=== PATIENT | male | born 1975 | race Caucasian/White ===

== ENCOUNTER 2019-12-21 23:56 | Inpatient (IN) | payer OTHER ==
[~2019-12-21] VITALS: Ht 193 cm; Wt 183.8 kg
[2019-12-22 00:17] LABS: Hematocrit 48.4 % (37.0-53.0); Mean Corpuscular HGB 30.6 pg (26.0-34.0); Mean Corpuscular HGB Conc 33.1 g/dL (31.5-36.5); Mean Corpuscular Volume 93 fL (80-100); Mean Platelet Volume 11.6 fL (9.1-12.4); Platelet Count 221 K/mm3 (150-400); RDW Coefficient Variation 12.7 % (11.7-14.2); RDW Standard Deviation 43.5 fL (35.1-46.3); Red Blood Cell Count 5.23 M/mm3 (4.30-5.90); White Blood Cell Count 10.49 K/mm3 (4.00-11.30)
[2019-12-22 00:34] LABS: Alanine Aminotransfer (ALT/SGP 72 U/L (12-78); Albumin, Blood 3.6 g/dL (3.4-5.0); Albumin/Globulin Ratio 0.9 (0.8-1.8); Alk Phos 116 U/L (50-136); Anion Gap 7 mmol/L (6-16); Aspartate Aminotrans (AST/SGOT 43 U/L (12-37); Bilirubin, Total 0.3 mg/dL (0.1-1.0); Blood Urea Nitrogen 19 mg/dL (8-24); Bun/Creatinine Ratio 19.4 (12.0-20.0); CHOL/HDL RATIO 6.2; CO2, Blood 23 mmol/L (21-32); Calcium, Blood 8.6 mg/dL (8.5-10.1); Chloride, Blood 108 mmol/L (98-108); Cholesterol 187 mg/dL (50-200); Creatinine, Blood 0.98 mg/dL (0.60-1.20); Glomerular Filtration Rate >60 (60-); Glucose, Blood 210 mg/dL (70-99); HDL Cholesterol 30 mg/dL (>39); LDL/HDL RATIO 3.1; Low Density Lipoprotein Chol 92 mg/dL (0-110); Potassium, Blood 4.6 mmol/L (3.5-5.5); Sodium, Blood 138 mmol/L (136-145); Total Protein, Blood 7.6 g/dL (6.4-8.2); Triglycerides 323 mg/dL (30-160); Troponin I 0.434 ng/mL (0.000-0.040); Very Low Density Lipoprot Chol 64 mg/dL (6-32)
--- NOTE | 2019-12-22 04:31 | NUR ---
PT ARRIVES TO ICU FROM REFINING ENGINEER PT ALERT AND ORIENTED UPON ARRIVAL, TEARFUL. PT. REPORTS CHEST PAIN OF 1/10 UPON ARRIVAL DESCRIBING THE PAIN A "MILD PRESSURE" HOWEVER REPORTS THIS IS MUCH IMPROVED SINCE ARRIVAL. PT HYPERTENSIVE UPON ARRIVAL. PT. HAS BILAT TR BANDS IN PLACE, NO HEMATOMA NOTED, WITH SMALL AMOUNT OF OOZING TO RIGHT WRIST, PER REFINING ENGINEER STAFF UNCHANGED. PT. HAS 13CC OF AIR IN BOTH BANDS UPON ARRIVAL. PT LS CLEAR T/O AND IS ON RA. PT. HAS PITTING EDEMA TO BILAT LE PER PT HE WAS SUPPOSED TO SEE HIS PCP TODAY FOR WORK UP FOR LYMPHEDEMA. NS STARTED AT 100ML/HR. PT. VOIDED UPON ARRIVAL VIA URINAL. NADN. CALL LIGHT IN REACH. FAMILY AT BEDSIDE.
--- NOTE | 2019-12-22 05:10 | NUR ---
CALL TO DR. BENJMAIN UPDATED ON PT AND CONTINUED HYPERTENSION, AND IF REPEAT EKG NEEDED POST TELEVISION MAINTENANCE MAN. ORDERS OBTAINED FOR HYPERTENSION, AND EKG. HOSPITALIST CONSULT ORDERED WELL PER DR. BENJAMIN NOT URGENT BUT NEEDED FOR ASSISTANCE WITH PT BG MANAGEMENT.
[2019-12-22 08:37] LABS: BASOPHILS ABSOLUTE AUTO 0.07 K/mm3 (0.00-0.23); BASOPHILS PERCENT AUTO 1 % (0-2); EOSINOPHILS ABSOLUTE AUTO 0.07 K/mm3 (0.00-0.68); EOSINOPHILS PERCENT AUTO 1 % (0-6); Hematocrit 44.2 % (37.0-53.0); Hemoglobin 14.7 g/dL (13.5-17.5); IMMATURE GRAN ABSOLUTE AUTO 0.02 K/mm3 (0.00-0.10); IMMATURE GRAN PERCENT AUTO 0 % (0-1); LYMPHOCYTES ABSOLUTE AUTO 1.17 K/mm3 (0.84-5.20); LYMPHOCYTES PERCENT AUTO 13 % (21-46); MONOCYTES ABSOLUTE AUTO 0.52 K/mm3 (0.16-1.47); MONOCYTES PERCENT AUTO 6 % (4-13); Mean Corpuscular HGB 30.4 pg (26.0-34.0); Mean Corpuscular HGB Conc 33.3 g/dL (31.5-36.5); Mean Corpuscular Volume 92 fL (80-100); Mean Platelet Volume 11.5 fL (9.1-12.4); NEUTROPHILS ABSOLUTE AUTO 7.25 K/mm3 (1.96-9.15); NEUTROPHILS PERCENT AUTO 80 % (41-73); Platelet Count 211 K/mm3 (150-400); RDW Coefficient Variation 12.7 % (11.7-14.2); RDW Standard Deviation 42.4 fL (35.1-46.3); Red Blood Cell Count 4.83 M/mm3 (4.30-5.90)
[2019-12-22 09:00] LABS: Alanine Aminotransfer (ALT/SGP 78 U/L (12-78); Albumin, Blood 3.2 g/dL (3.4-5.0); Albumin/Globulin Ratio 0.8 (0.8-1.8); Alk Phos 91 U/L (50-136); Anion Gap 4 mmol/L (6-16); Aspartate Aminotrans (AST/SGOT 167 U/L (12-37); Bilirubin, Total 0.4 mg/dL (0.1-1.0); Blood Urea Nitrogen 14 mg/dL (8-24); Bun/Creatinine Ratio 18.5 (12.0-20.0); CHOL/HDL RATIO 6.2; CO2, Blood 26 mmol/L (21-32); Calcium, Blood 8.5 mg/dL (8.5-10.1); Chloride, Blood 105 mmol/L (98-108); Cholesterol 167 mg/dL (50-200); Creatinine, Blood 0.76 mg/dL (0.60-1.20); Globulin, Blood 4.1 g/dL (2.2-4.0); Glomerular Filtration Rate >60 (60-); Glucose, Blood 167 mg/dL (70-99); HDL Cholesterol 27 mg/dL (>39); LDL/HDL RATIO 2.8; Low Density Lipoprotein Chol 76 mg/dL (0-110); Potassium, Blood 4.7 mmol/L (3.5-5.5); Sodium, Blood 135 mmol/L (136-145); Total Protein, Blood 7.3 g/dL (6.4-8.2); Triglycerides 319 mg/dL (30-160); Very Low Density Lipoprot Chol 63 mg/dL (6-32)
--- NOTE | 2019-12-22 09:09 | NUR ---
ASSUMED CARE OF PT AT 0700. BEDSIDE REPORT FROM ADRIENNE JOHNSON. PT RESTING IN BED. A&OX 4. ANSWERS QUESTIONS APPROPRIATELY. PT ONLY C/O SLIGHT RICO THAT HE STATES IS IMPROVING. PT DENIES CHEST PAIN OR SOB. PT SPEAKING IN FULL SENTANCES. LUNGS CLEAR. NSR RATE 70-80'S. HTN NOTED. MEDICATED c PO MEDS AND LABETALOL IV PRN. ABD OBESE, SOFT, NON TENDER. BT X 4. ASSISTED PT c BREAKFAST, TOLERATED WELL. ENCOURAGED PO INTAKE. LYMPEDEMA TO LOWER EXTREMITIES. PT STATES THIS CHRONIC AND HAD APPT TO ESTABLISH PCP FOR WORKUP TODAY. TR BANDS TO BILATERAL RADIAL ARTERIES. EACH c 13ML OF AIR AT SHIFT CHANGE. CURRENTLY REMOVING 2-3 ML OF AIR q30. NO BLEEDING OR OOZING NOTED. PT DENIES PAIN TO SITES. RAULITO BLACKWELL CALLED FOR HOSPITALIST ADMISSION. WILL CONTINUE TO MONITOR.
--- NOTE | 2019-12-22 09:38 | NUR ---
Echocardiogram completed.
[2019-12-22 10:07] LABS: Source, Urine Clean Catch
[2019-12-22 10:21] LABS: Bilirubin, Urine Neg (Neg); Blood, Urine Neg (Neg); Glucose Qualitative, Urine 1+ (Neg); Ketones, Urine Neg (Neg); Leukocyte Esterase, Urine Neg (Neg); Nitrite, Urine Neg (Neg); Protein, Urine Neg (Neg); Urobilinogen, Urine NORM (Normal)
[2019-12-22 10:38] LABS: Appearance, Urine Clear (Clear); Color, Urine Yellow (P-Yellow)
--- NOTE | 2019-12-22 10:55 | NUR ---
DR BENJAMIN AND RAULITO CLEAN IN PLACES OPERATOR IN TO SEE PT THIS AM. ADDITIONAL BP MEDS ORDERED BY DR BENJAIMN. PLAN FOR DIETARY CONSULT, KNEE HIGH NIXON HOSE PLACED. TR BANDS REMOVED. OBSITE PLACED. NO BLEEDING, OOZING, HEMATOMA OR PAIN NOTED. ARM BOARDS IN PLACE.
--- NOTE | 2019-12-22 17:25 | NUR ---
SHIFT SUMMARY PT REMAINED CHEST PAIN FREE ENTIRE SHIFT. ONLY C/O RICO, RELIEVED c TYLENOL. TR BANDS REMOVED s COMPLICATIONS. OPSITES AND ARM BOARDS IN PLACE. HTN IMPROVED THIS SHIFT. REMAINED IN NSR. TROPONINS TRENDING DOWN. ECHO COMPLETE. ENCOURAGED PO INTAKE, 600 ML OF WATER THIS SHIFT. GOOD APPETITE. WILL CONTINUE TO MONITOR UNTIL REPORT TO ONCOMING NURSE.
--- NOTE | 2019-12-22 21:49 | NUR ---
BEDSIDE REPORT RECIEVED FROM JUSTEN OFF GOING RN. MONITOR INTACT SHOWING SINUS RHYTHM. HEART RATE 70'S-80'S. LUNG SOUNDS CLEAR WITH DECREASED SOUNDS IN THE BASES. RESPIRATIONS REGULAR AND EASY AT REST ABDOMEN SOFT WITH BOWEL SOUNDS FOUR QUADS. TR BAND SITES TO BOTH WRISTS CLEAR WITH DRESSING AND ARM BOARDS INTACT. CO HEARTBURN STATES TAKES "OMPROZOLE" AT HOME. NOTIFIED JAME CONSTRUCTION PROJECT MANAGER AND ORDERS NOTED. CONTINUE TO MONITOR AND REPORT CHANGE IN PATIENT CONDITION.
[2019-12-23 03:33] LABS: Mean Corpuscular HGB 30.5 pg (26.0-34.0); Mean Corpuscular HGB Conc 33.3 g/dL (31.5-36.5); Mean Corpuscular Volume 92 fL (80-100); Mean Platelet Volume 11.3 fL (9.1-12.4); Platelet Count 189 K/mm3 (150-400); RDW Coefficient Variation 12.8 % (11.7-14.2); RDW Standard Deviation 42.5 fL (35.1-46.3); Red Blood Cell Count 4.59 M/mm3 (4.30-5.90)
[2019-12-23 03:52] LABS: Alanine Aminotransfer (ALT/SGP 65 U/L (12-78); Albumin, Blood 3.2 g/dL (3.4-5.0); Albumin/Globulin Ratio 0.9 (0.8-1.8); Alk Phos 86 U/L (50-136); Anion Gap 7 mmol/L (6-16); Aspartate Aminotrans (AST/SGOT 110 U/L (12-37); Bilirubin, Total 0.8 mg/dL (0.1-1.0); Blood Urea Nitrogen 10 mg/dL (8-24); Bun/Creatinine Ratio 12.7 (12.0-20.0); CO2, Blood 25 mmol/L (21-32); Calcium, Blood 8.2 mg/dL (8.5-10.1); Chloride, Blood 105 mmol/L (98-108); Creatinine, Blood 0.79 mg/dL (0.60-1.20); Globulin, Blood 3.5 g/dL (2.2-4.0); Glomerular Filtration Rate >60 (60-); Glucose, Blood 153 mg/dL (70-99); Potassium, Blood 3.9 mmol/L (3.5-5.5); Sodium, Blood 137 mmol/L (136-145); Total Protein, Blood 6.7 g/dL (6.4-8.2)
[2019-12-23 05:55] LABS: BASOPHILS ABSOLUTE MAN 0.18 K/mm3 (0.00-0.23); BASOPHILS PERCENT MAN 2 % (0-2); EOSINOPHILS ABSOLUTE MAN 0.09 K/mm3 (0.00-0.68); EOSINOPHILS PERCENT MAN 1 % (0-6); LYMPHOCYTES ABSOLUTE MAN 1.36 K/mm3 (0.84-5.20); LYMPHOCYTES PERCENT MAN 15 % (21-46); MONOCYTES ABSOLUTE MAN 0.54 K/mm3 (0.16-1.47); MONOCYTES PERCENT MAN 6 % (4-13); NEUTROPHILS ABSOLUTE MAN 6.91 K/mm3 (1.96-9.15); SEG NEUTROPHILS PERCENT MAN 76 % (41-73); TOTAL CELLS COUNTED 100
--- NOTE | 2019-12-23 07:47 | NUR ---
ASSUMED CARE AT 0700 REPORT FROM ELIZABETH BERUMEN. PT A&O, RADIAL SITES STABLE. ASSISTED WITH PHONE USE. BILAT PITTING PEDAL EDEMA
--- NOTE | 2019-12-23 10:12 | NUR ---
MD VISIT DR. BENJAMIN IN. PT CHANGED TO PCU STATUS. APPOINTMENT MADE WITH OFFICE FOR 01/01/20. BRILINTA SAMPLES PICKED UP BY MOTHER.
--- NOTE | 2019-12-23 16:06 | NUR ---
PATIENT DENIES CHEST PAIN.
--- NOTE | 2019-12-23 19:24 | NUR ---
REPORT GIVEN TO ELIZABETH CASTRO
--- NOTE | 2019-12-23 20:00 | NUR ---
ASSUMPTION OF CARE: PT A&0. FAMILY CURRENTLY IN ROOM. IN SR. SBP 130-160S. HR IN THE 80S. PT DOES HAVE BLE EDEMA RELATED TO LYMPHEDEMA. PULSES ARE PRESENT. PITTING IS 2+. BILAT RADIAL ACCESS SITES ARE DRY AND INTACT. NO CURRENTLY BLEEDING OR HEMATOMA. PULSES ARE PALAPABLE. GOOD MOVEMENT AND SENSATION IN FINGERS. SPO2 >90% ON RA. SOME EXPIRATORY WHEEZES PRESENT. PT HAS BILAT AC IV THAT ARE PATENT AND SL. PT IS UP IN ROOM ON OWN. BED LOW AND CALL LIGHT IN REACH. WILL CONTINUE TO MONITOR
[2019-12-24 03:45] LABS: Anion Gap 5 mmol/L (6-16); Blood Urea Nitrogen 12 mg/dL (8-24); Bun/Creatinine Ratio 14.5 (12.0-20.0); CO2, Blood 27 mmol/L (21-32); Calcium, Blood 8.6 mg/dL (8.5-10.1); Chloride, Blood 106 mmol/L (98-108); Creatinine, Blood 0.83 mg/dL (0.60-1.20); Glomerular Filtration Rate >60 (60-); Glucose, Blood 139 mg/dL (70-99); Sodium, Blood 138 mmol/L (136-145)
--- NOTE | 2019-12-24 03:46 | NUR ---
PT CONTINUES TO REST COMFORTABLY T/O SHIFT. NO COMPLAINTS THUS FAR. PT UP TO TOILET ON OWN. VSS
--- NOTE | 2019-12-24 05:13 | NUR ---
SHIFT SUMMARY: NO ACUTE CHANGES T/O SHIFT. VITALS REMAIN STABLE. RADIAL ACCESS SITES ARE DRY AND INTACT. PT HAS HAD NO COMPLAINTS
--- NOTE | 2019-12-24 09:49 | NUR ---
PT HAS BEEN A[facility] AND [facility]. VSS. NO DISTRESS.
[2019-12-24] MEDS ORDERED: ASPI81CH PO (15:30)
[2019-12-24] MEDS ORDERED: AMLO10 PO (15:30)
[2019-12-24] MEDS ORDERED: ATOR80 PO (15:31)
[2019-12-24] MEDS ORDERED: HYDRA25 PO (15:32)
[2019-12-24] MEDS ORDERED: APRACLONIDINE (15:32)
[2019-12-24] MEDS ORDERED: Humalog100 UNIT/3 SC (15:45)
[2019-12-24] MEDS ORDERED: Prinivil10 MG PO (15:47)
[2019-12-24] MEDS ORDERED: METO50ER PO (15:48)
[2019-12-24] MEDS ORDERED: NICO21TP TOP (15:48)
[2019-12-24] MEDS ORDERED: OMEP20ER PO (15:51)
[2019-12-24] MEDS ORDERED: TICA90TA PO (15:52)
[2019-12-24] MEDS ORDERED: NITR.4SL SL (15:56)
--- NOTE | 2019-12-24 16:49 | NUR ---
PT WAS D/C VIA W/C PT FAMILY CAR. PT STEADY ON FEET. IV REMOVED INTACT. INSTRUCTIONS RE BILAT TR SITES GIVEN AND RECIEVED. INSULIN LSS PRINTED OUT AND GIVEN TO PT WITH PT UNDERSTANDING MEDICATION. MEDICATION DISCOUNT CARD GIVEN TO PT FROM [facility]. FAMILY IN ATTENDANCE WITH INSTRUCTIONS AND ALSO VERBALIZED UNDERSTANDING. PT HAS F/U APPOINTMENT ON December AT 10 A.M. PT HAD BEEN UP IN ROOM AND WAS NOT EXPERIENCING ANY CHEST PAIN OR DISTRESS. PT WILL GO TO [facility] AND MEDS FAXED AHEAD FOR CLARRIFICATION.
== END 2019-12-24 16:45 | disposition home or self-care (01) | DRG 247 ==
LOC: ER 23:56 → ICUE 23:57 → ER 23:57 → ICUW 23:57 → ICUE 12-22 01:04 → ICUW 12-22 01:04 → ICUE 12-22 04:25
PROVIDERS: Emergency Medicine; Internal Medicine; Nurse Practitioner Acute Care; ADMIT Internal Medicine Interventional Cardiology
PROC: 4A023N7 Measurement of Cardiac Sampling and Pressure, Left Heart, Percutaneous Approach (ICD-10-PCS; principal; 2019-12-22)
PROC: 027034Z Dilation of Coronary Artery, One Artery with Drug-eluting Intraluminal Device, Percutaneous Approach (ICD-10-PCS; 2019-12-22)
PROC: B2111ZZ Fluoroscopy of Multiple Coronary Arteries using Low Osmolar Contrast (ICD-10-PCS; 2019-12-22)
PROC: 4A033BC Measurement of Arterial Pressure, Coronary, Percutaneous Approach (ICD-10-PCS; 2019-12-22)
DX: I21.11 ST elevation (STEMI) myocardial infarction involving right coronary artery (principal); Z68.42 Body mass index [BMI] 45.0-49.9, adult; I16.1 Hypertensive emergency; F17.210 Nicotine dependence, cigarettes, uncomplicated; E66.01 Morbid (severe) obesity due to excess calories; K21.9 Gastro-esophageal reflux disease without esophagitis; G47.33 Obstructive sleep apnea (adult) (pediatric); I25.10 Atherosclerotic heart disease of native coronary artery without angina pectoris; E11.9 Type 2 diabetes mellitus without complications; E78.5 Hyperlipidemia, unspecified; Z79.4 Long term (current) use of insulin; I10 Essential (primary) hypertension
CPT/HCPCS: 36415; 71045; 76937; 80048; 80053; 80061; 81003; 82947; 83036; 83735; 84484; 85007; 85025; 85027; 85347; 86850; 86900; 86901; 93005; 93010; 93306; 93458; 93571; 94660; 96374; 99152; 99153; 99285-25; A9270; A9270-GY; C1725; C1769; C1874; C1887; C1894; C9600; C9606; J1644; J1650; J2250; J3010; J7030; J7040; Q9967

== ENCOUNTER 2020-01-02 09:51 | Inpatient (IN) | payer OTHER ==
[~2020-01-02] VITALS: Ht 193 cm; Wt 184.2 kg
[~2020-01-02 09:51] MED LIST: AMLO10 PO; APRACLONIDINE; ASPI81CH PO; ATOR80 PO; HYDRA25 PO; Humalog100 UNIT/3 SC; METO50ER PO; NICO21TP TOP; NITR.4SL SL; OMEP20ER PO; Prinivil10 MG PO; TICA90TA PO
--- NOTE | 2020-01-02 13:25 | NUR ---
AM NOTE... ASSUMED CARE OF PT APROX 1315. PT IS S/P ANGIO WITH STENT PLACEMENT. PT HAS TR BAND TO THE RIGHT WRIST. VS STABLE. PT DENIES CHEST PAIN/PRESSURE AT THIS TIME. NO SWELLING, BLEEDING OR HEMATOMA NOTED TO THE PT'S RIGHT WRIST. CALL LIGHT IN REACH WILL CONTINUE TO MONITOR.
--- NOTE | 2020-01-02 14:03 | NUR ---
The pt is sitting in bed, leaning back with HOB elevated a45 degrees. He denies chest discomfort, dyspnea and shortness of breath. STates a little bit of a headache which he states is from the nitroglycerin. TR band and white immoblizer board are in place, right wrist, and without signs of bleeding, bruising, swelling nor hematoma. Pt denies numbness/pain/tingling in the right hand/wrist. He appears to be in no distress.
--- NOTE | 2020-01-02 14:05 | NUR ---
Per dance choreographer tech, heart rhythm is sinus rhythm at 92 bpm.
--- NOTE | 2020-01-02 18:17 | NUR ---
SHIFT SUMMARY... NO ACUTE NEGATIVE CHANGES NOTED THIS SHIFT. TR BAND HAS BEEN DEFLATED, NO BLEEDING SWELLING OR HEMATOMA NOTED. PT'S VS STABLE AT THIS TIME. PT IS A&Ox4 AND IND IN THE ROOM. PT WILL MOST LIKELY D/C HOME TOMORROW. CALL LIGHT IN REACH WILL CONTINUE TO MONITOR UNTIL REPORT IS GIVEN TO ONCOMING RN.
--- NOTE | 2020-01-02 19:45 | NUR ---
ASSUMED CARE RECEIVED REPORT FROM ELIZABETH SARGNET. ASSUMED CARE OF PT. RESTING COMFORTABLY AT THIS TIME IN NO ACUTE DISTRESS. RT RADIAL TR SITE WNL, NO HEMATOMA, OOZING NOTED. PULSES STRONG. DENIES NUMBNESS OR TINGLING. DENIES ANY OTHER NEEDS AT THIS TIME. CALL LIGHT AND POSSESSIONS IN REACH, WILL CONTINUE TO MONITOR.
--- NOTE | 2020-01-03 00:49 | NUR ---
SPOKE TO DR. PEREZ REGARDING PT'S INCREASING TEMPERATURES. ORDERS RECEIVED.
[2020-01-03 01:20] LABS: BASOPHILS ABSOLUTE AUTO 0.04 K/mm3 (0.00-0.23); BASOPHILS PERCENT AUTO 0 % (0-2); EOSINOPHILS ABSOLUTE AUTO 0.13 K/mm3 (0.00-0.68); EOSINOPHILS PERCENT AUTO 1 % (0-6); Hematocrit 40.9 % (37.0-53.0); Hemoglobin 13.6 g/dL (13.5-17.5); IMMATURE GRAN ABSOLUTE AUTO 0.03 K/mm3 (0.00-0.10); IMMATURE GRAN PERCENT AUTO 0 % (0-1); LYMPHOCYTES ABSOLUTE AUTO 0.17 K/mm3 (0.84-5.20); LYMPHOCYTES PERCENT AUTO 2 % (21-46); MONOCYTES ABSOLUTE AUTO 0.55 K/mm3 (0.16-1.47); MONOCYTES PERCENT AUTO 5 % (4-13); Mean Corpuscular HGB 30.1 pg (26.0-34.0); Mean Corpuscular HGB Conc 33.3 g/dL (31.5-36.5); Mean Corpuscular Volume 91 fL (80-100); Mean Platelet Volume 11.1 fL (9.1-12.4); NEUTROPHILS ABSOLUTE AUTO 9.42 K/mm3 (1.96-9.15); NEUTROPHILS PERCENT AUTO 91 % (41-73); Platelet Count 259 K/mm3 (150-400); RDW Coefficient Variation 12.6 % (11.7-14.2); RDW Standard Deviation 41.5 fL (35.1-46.3); Red Blood Cell Count 4.52 M/mm3 (4.30-5.90); White Blood Cell Count 10.34 K/mm3 (4.00-11.30)
[2020-01-03 01:35] LABS: Anion Gap 5 mmol/L (6-16); Blood Urea Nitrogen 18 mg/dL (8-24); Bun/Creatinine Ratio 14.2 (12.0-20.0); CO2, Blood 26 mmol/L (21-32); Calcium, Blood 8.4 mg/dL (8.5-10.1); Chloride, Blood 105 mmol/L (98-108); Creatinine, Blood 1.27 mg/dL (0.60-1.20); Glomerular Filtration Rate >60 (60-); Glucose, Blood 129 mg/dL (70-99); Potassium, Blood 4.6 mmol/L (3.5-5.5); Sodium, Blood 136 mmol/L (136-145)
--- NOTE | 2020-01-03 03:24 | NUR ---
SPOKE TO DR. PEREZ REGARDING PENDING LABS TO BE DRAWN. ORDERS RECEIVED.
--- NOTE | 2020-01-03 05:55 | NUR ---
SHIFT SUMMARY: PT RESTING COMFORTABLY AT THIS TIME, NO S/S ACUTE DISTRESS NOTED. WAS MONITORED EVERY 1-2 HOURS WITH NEEDS MET. RT RADIAL TR SITE REMAINS WNL, NO HEMATOMA, BLEEDING OR OOZING NOTED. PULSE STRONG, DENIES NUMBNESS AND TINGLING. TEMPS STABLE. SLEPT ON AND OFF T/O NIGHT.
[2020-01-03 06:24] LABS: Adenovirus Not Detected (NOT DETECT); Bordetella pertussis Not Detected (NOT DETECT); Chlamydophila pneumoniae Not Detected (NOT DETECT); Coronavirus 229E Not Detected (NOT DETECT); Coronavirus HKU1 Not Detected (NOT DETECT); Coronavirus NL63 Not Detected (NOT DETECT); Coronavirus OC43 Not Detected (NOT DETECT); Human Metapneumovirus Not Detected (NOT DETECT); Human Rhinovirus/Enterovirus Not Detected (NOT DETECT); Influenza A/2009-H1 Not Detected (NOT DETECT); Influenza A/H1 Not Detected (NOT DETECT); Influenza A/H3 Not Detected (NOT DETECT); Influenza B Not Detected (NOT DETECT); Mycoplasma pneumoniae Not Detected (NOT DETECT); Parainfluenza Virus 1 Not Detected (NOT DETECT); Parainfluenza Virus 2 Not Detected (NOT DETECT); Parainfluenza Virus 3 Not Detected (NOT DETECT); Parainfluenza Virus 4 Not Detected (NOT DETECT); Respiratory Syncytial Virus Not Detected (NOT DETECT)
[2020-01-03 07:30] LABS: Source, Urine Clean Catch
[2020-01-03 07:44] LABS: BASOPHILS ABSOLUTE AUTO 0.05 K/mm3 (0.00-0.23); BASOPHILS PERCENT AUTO 1 % (0-2); EOSINOPHILS ABSOLUTE AUTO 0.34 K/mm3 (0.00-0.68); EOSINOPHILS PERCENT AUTO 4 % (0-6); Hematocrit 39.3 % (37.0-53.0); IMMATURE GRAN ABSOLUTE AUTO 0.03 K/mm3 (0.00-0.10); IMMATURE GRAN PERCENT AUTO 0 % (0-1); LYMPHOCYTES ABSOLUTE AUTO 0.27 K/mm3 (0.84-5.20); LYMPHOCYTES PERCENT AUTO 3 % (21-46); MONOCYTES ABSOLUTE AUTO 0.76 K/mm3 (0.16-1.47); MONOCYTES PERCENT AUTO 9 % (4-13); Mean Corpuscular HGB 30.2 pg (26.0-34.0); Mean Corpuscular HGB Conc 33.1 g/dL (31.5-36.5); Mean Corpuscular Volume 91 fL (80-100); Mean Platelet Volume 10.9 fL (9.1-12.4); NEUTROPHILS ABSOLUTE AUTO 6.93 K/mm3 (1.96-9.15); NEUTROPHILS PERCENT AUTO 83 % (41-73); Platelet Count 223 K/mm3 (150-400); RDW Coefficient Variation 12.8 % (11.7-14.2); RDW Standard Deviation 42.9 fL (35.1-46.3); Red Blood Cell Count 4.31 M/mm3 (4.30-5.90); White Blood Cell Count 8.38 K/mm3 (4.00-11.30)
[2020-01-03 07:47] LABS: Bilirubin, Urine Neg (Neg); Blood, Urine 1+ (Neg); Glucose Qualitative, Urine Neg (Neg); Ketones, Urine 1+ (Neg); Leukocyte Esterase, Urine 2+ (Neg); Nitrite, Urine Neg (Neg); Protein, Urine 2+ (Neg); Specific Gravity, Urine 1.015 (1.003-1.022); Urobilinogen, Urine 1+ (Normal)
[2020-01-03 07:54] LABS: Appearance, Urine Cloudy (Clear); Color, Urine Yellow (P-Yellow)
[2020-01-03 07:55] LABS: Amorphous Heavy (0-Heavy); Bacteria Mod /hpf; Red Blood Cells, Urine 0-2 /hpf (0-2); Squamous Epithelial Cells Few /hpf (Few)
--- NOTE | 2020-01-03 08:39 | NUR ---
AM NOTE... ASSUMED CARE OF PT APROX 0700. PT IS A&Ox4 AND IND IN THE ROOM. PT SPIKED TEMP DURING NOC SHIFT, UA WAS SENT (SEE LAB RESULTS.) PT IS GETTING FLUID BOLUS. PT'S VS STABLE AT THIS TIME, PT DENIES ANY CHEST PAIN/PRESSURE N/V OR SOB AT THIS TIME. RIGHT WRIST SITE IS C/D/I. L/S CLEAR T/O, BT PRESENT AND HYPERACTIVE, ABD SOFT AND NONTENDER TO PALP. PT IS ON RA WITH O2 SATS >90%. CALL LIGHT IN REACH WILL CONTINUE TO MONITOR
--- NOTE | 2020-01-03 18:29 | NUR ---
SHIFT SUMMARY... PT HAS BEEN AFEBRILE T/O SHIFT AND VS HAVE BEEN STABLE. PT HAD 3.2 SECOND PAUSE NOTED ON TELE, STRIP IN THE CHART. PT WAS SLEEPING DURING THIS EVENT. PT HAS SLEEP APNEA AND WAS HAVING AN APNIC PERIOD DURING THIS PAUSE THAT WAS WITNESSED BY THIS RN. PT HAS BEEN IND IN THE ROOM. RIGHT WRIST SITE IS STABLE, NO BLEEDING, SWELLING OR HEMATOMA NOTED. CALL LIGHT IN REACH WILL CONTINUE TO MONITOR UNTIL REPORT IS GIVEN TO ONCOMING RN.
--- NOTE | 2020-01-03 20:15 | NUR ---
ASSUMED CARE RECEIVED REPORT FROM ELIZABETH SARGENT. ASSUMED CARE OF PT. IN NO ACUTE DISTRESS AT THIS TIME, DENIES CP OR SOB. VS STABLE. PT RESTING COMFORTABLY WATCHING TV AT THIS TIME. IVF COMPLETED ORDERED, SALINE LOCKED. DENIES ANY OTHER NEEDS AT THIS TIME. CALL LIGHT AND POSSESSIONS IN REACH, WILL CONTINUE TO MONITOR.
[2020-01-04 05:57] LABS: Anion Gap 6 mmol/L (6-16); Blood Urea Nitrogen 13 mg/dL (8-24); Bun/Creatinine Ratio 14.9 (12.0-20.0); CO2, Blood 25 mmol/L (21-32); Calcium, Blood 8.4 mg/dL (8.5-10.1); Chloride, Blood 107 mmol/L (98-108); Creatinine, Blood 0.87 mg/dL (0.60-1.20); Glomerular Filtration Rate >60 (60-); Glucose, Blood 126 mg/dL (70-99); Potassium, Blood 4.2 mmol/L (3.5-5.5); Sodium, Blood 138 mmol/L (136-145)
--- NOTE | 2020-01-04 07:55 | NUR ---
SHIFT SUMMARY: PT RESTING IN BED, IN NO ACUTE DISTRESS. NO ACUTE EVENTS NOTED T/O NIGHT, O2 SATS STABLE ON 2L O2/NC WHILE SLEEPING, NO FURTHER PAUSES IN HR NOTED, SATS STABLE. DENIES ANY NEEDS AT THIS TIME, CALL LIGHT AND POSSESSIONS IN REACH, REPORT GIVEN TO ONCOMING RN.
[2020-01-04] MEDS ORDERED: LEVO750 PO (10:34)
--- NOTE | 2020-01-04 10:57 | NUR ---
DISCHARGE HOME PT DISCHARGED HOME VIA W/C. IV LEFT FA REMOVED WITH CANNULA INTACT. PRESSURE DRESSING APPLIED. VSS. RIGHT RADIAL SITE C&I. WRIST BOARD OFF. FAMILY AT BEDSIDE. CONTINUE POT.
== END 2020-01-04 10:55 | disposition home or self-care (01) | DRG 246 ==
LOC: PCU 09:51 → MHTC 09:51 → PCU 13:57 → MHTC 01-03 07:55 → PCU 01-03 07:56
PROVIDERS: Internal Medicine; ADMIT Internal Medicine Interventional Cardiology
PROC: 027034Z Dilation of Coronary Artery, One Artery with Drug-eluting Intraluminal Device, Percutaneous Approach (ICD-10-PCS; principal; 2020-01-02)
DX: I25.110 Atherosclerotic heart disease of native coronary artery with unstable angina pectoris (principal); I21.3 ST elevation (STEMI) myocardial infarction of unspecified site; I22.9 Subsequent ST elevation (STEMI) myocardial infarction of unspecified site; N39.0 Urinary tract infection, site not specified; Z68.42 Body mass index [BMI] 45.0-49.9, adult; E11.9 Type 2 diabetes mellitus without complications; I10 Essential (primary) hypertension; E66.01 Morbid (severe) obesity due to excess calories; K21.9 Gastro-esophageal reflux disease without esophagitis; Z95.5 Presence of coronary angioplasty implant and graft; Z79.82 Long term (current) use of aspirin; Z79.4 Long term (current) use of insulin
CPT/HCPCS: 0099U; 36415; 71045; 76937; 80048; 81001; 82947; 83605; 84145; 85025; 85347; 87040; 87086; 92978; 93454; 99152; 99153; A9270; A9270-GY; C1725; C1753; C1769; C1874; C1887; C1894; C9600; J0696; J1644; J1650; J2250; J3010; J7030; Q9967

== ENCOUNTER → 2020-07-28 | Outpatient (CLI) | payer OTHER ==
[~2020-07-28] MED LIST changes: +LEVO750 PO
[2020-07-29 19:09] LABS: Creatinine Urine 90.3 mg/dL (27.00-270.00); Uric Acid, Urine 31.1 mg/dL (7.5-49.5)
[2020-07-29 21:32] LABS: Calcium, Urine <5.0 mg/dL (< 17.5); Calcium, Urine Calculation Unable to Calculate mg/24hrs (42.0-353.0)
== END | disposition home or self-care (01) ==
LOC: LAB 14:20 → LAB SHORT 14:20
PROVIDERS: Internal Medicine Nephrology
DX: N18.2 Chronic kidney disease, stage 2 (mild) (principal); D63.1 Anemia in chronic kidney disease; R76.9 Abnormal immunological finding in serum, unspecified; R94.5 Abnormal results of liver function studies; R94.6 Abnormal results of thyroid function studies; N25.81 Secondary hyperparathyroidism of renal origin; E78.00 Pure hypercholesterolemia, unspecified
CPT/HCPCS: 81050; 82340; 82570; 84105; 84133; 84300; 84560

== ENCOUNTER → 2021-03-12 | Outpatient (CLI) | payer OTHER ==
[2021-03-15 13:39] LABS: Protein, Urine Quantitative <5.0 mg/dL (0.0-11.9)
== END | disposition home or self-care (01) ==
LOC: LAB SHORT 09:13 → LAB 09:13
PROVIDERS: Internal Medicine Nephrology
DX: N18.2 Chronic kidney disease, stage 2 (mild) (principal); D63.1 Anemia in chronic kidney disease
CPT/HCPCS: 81050; 82043; 82570; 84156

== ENCOUNTER 2021-12-18 13:12 | Emergency (ER) | payer OTHER ==
[~2021-12-18] VITALS: Ht 193 cm; Wt 168.6 kg
[2021-12-18 13:48] LABS: BASOPHILS ABSOLUTE AUTO 0.06 K/mm3 (0.00-0.23); BASOPHILS PERCENT AUTO 0 % (0-2); EOSINOPHILS ABSOLUTE AUTO 0.07 K/mm3 (0.00-0.68); EOSINOPHILS PERCENT AUTO 1 % (0-6); Hemoglobin 15.3 g/dL (13.5-17.5); IMMATURE GRAN ABSOLUTE AUTO 0.06 K/mm3 (0.00-0.10); IMMATURE GRAN PERCENT AUTO 0 % (0-1); LYMPHOCYTES ABSOLUTE AUTO 0.97 K/mm3 (0.84-5.20); LYMPHOCYTES PERCENT AUTO 7 % (21-46); MONOCYTES ABSOLUTE AUTO 0.84 K/mm3 (0.16-1.47); MONOCYTES PERCENT AUTO 6 % (4-13); Mean Corpuscular HGB 29.9 pg (26.0-34.0); Mean Corpuscular Volume 88 fL (80-100); Mean Platelet Volume 11.1 fL (9.1-12.4); NEUTROPHILS ABSOLUTE AUTO 11.48 K/mm3 (1.96-9.15); NEUTROPHILS PERCENT AUTO 85 % (41-73); Platelet Count 227 K/mm3 (150-400); RDW Coefficient Variation 12.3 % (11.7-14.2); RDW Standard Deviation 40.1 fL (35.1-46.3); Red Blood Cell Count 5.11 M/mm3 (4.30-5.90); White Blood Cell Count 13.48 K/mm3 (4.00-11.30)
[2021-12-18 14:05] LABS: Alanine Aminotransfer (ALT/SGP 47 U/L (12-78); Albumin, Blood 2.8 g/dL (3.4-5.0); Albumin/Globulin Ratio 0.5 (0.8-1.8); Alk Phos 121 U/L (50-136); Anion Gap 9 mmol/L (6-16); Aspartate Aminotrans (AST/SGOT 14 U/L (12-37); Bilirubin, Total 1.1 mg/dL (0.1-1.0); Blood Urea Nitrogen 16 mg/dL (8-24); Bun/Creatinine Ratio 18.9 (12.0-20.0); CO2, Blood 24 mmol/L (21-32); Chloride, Blood 98 mmol/L (98-108); Creatinine, Blood 0.85 mg/dL (0.60-1.20); Globulin, Blood 5.4 g/dL (2.2-4.0); Glomerular Filtration Rate >60 (60-); Glucose, Blood 403 mg/dL (70-99); Potassium, Blood 4.1 mmol/L (3.5-5.5); Sodium, Blood 131 mmol/L (136-145); Total Protein, Blood 8.2 g/dL (6.4-8.2)
[2021-12-18 15:09] LABS: Source, Urine Clean Catch
[2021-12-18 15:12] LABS: Bilirubin, Urine Neg (Neg); Blood, Urine Neg (Neg); Glucose Qualitative, Urine 4+ (Neg); Ketones, Urine 3+ (Neg); Leukocyte Esterase, Urine 1+ (Neg); Nitrite, Urine Neg (Neg); Protein, Urine 2+ (Neg); Urobilinogen, Urine 1+ (Normal)
[2021-12-18 15:25] LABS: Appearance, Urine Hazy (Clear); Color, Urine Pale Yellow (P-Yellow)
[2021-12-18 15:26] LABS: Amorphous Light (0-Heavy); Bacteria Few /hpf; Mucus Light (0-Heavy); Red Blood Cells, Urine 0-2 /hpf (0-2); Squamous Epithelial Cells Rare /hpf (Few)
== END 2021-12-18 17:58 | disposition home or self-care (01) ==
LOC: ER 13:12
PROVIDERS: Physician Assistant; Student in an Organized Health Care Education/Training Program
DX: L03.116 Cellulitis of left lower limb (principal); S91.332A Puncture wound without foreign body, left foot, initial encounter; E11.65 Type 2 diabetes mellitus with hyperglycemia; I10 Essential (primary) hypertension; E11.40 Type 2 diabetes mellitus with diabetic neuropathy, unspecified; A41.9 Sepsis, unspecified organism; D72.829 Elevated white blood cell count, unspecified; Z87.891 Personal history of nicotine dependence; Z79.82 Long term (current) use of aspirin; Z79.899 Other long term (current) drug therapy; Z79.4 Long term (current) use of insulin; Z88.8 Allergy status to other drugs, medicaments and biological substances; W26.9XXA Contact with unspecified sharp object(s), initial encounter
CPT/HCPCS: 36415; 73620; 80053; 81001; 83605; 85025; 86140; 87086; 96365; 96366; 96375; 99283-25; J0696; J1815; J1885; J3370; J7030; J7050

== ENCOUNTER 2021-12-21 02:00 | Day surgery (SDC) | payer OTHER ==
[~2021-12-21] VITALS: Ht 193 cm; Wt 165.5 kg
== END 2021-12-21 16:02 | disposition home or self-care (01) ==
LOC: ATC 02:00
DX: L03.116 Cellulitis of left lower limb (principal); A41.9 Sepsis, unspecified organism; B95.62 Methicillin resistant Staphylococcus aureus infection as the cause of diseases classified elsewhere; E11.9 Type 2 diabetes mellitus without complications; I10 Essential (primary) hypertension; Z88.8 Allergy status to other drugs, medicaments and biological substances; Z79.4 Long term (current) use of insulin; Z95.828 Presence of other vascular implants and grafts; Z87.891 Personal history of nicotine dependence
CPT/HCPCS: J0696; J0878

== ENCOUNTER 2021-12-22 00:08 | Day surgery (SDC) | payer OTHER ==
[2021-12-23] MEDS ORDERED: CUBICIN500 MG IV (14:17)
[2021-12-23] MEDS ORDERED: CEFTRIAXON1 GM/50 M1 IV (14:18)
== END 2021-12-22 14:09 | disposition home or self-care (01) ==
LOC: ATC 00:08
DX: A41.9 Sepsis, unspecified organism (principal); L03.116 Cellulitis of left lower limb; S91.302A Unspecified open wound, left foot, initial encounter; X58.XXXA Exposure to other specified factors, initial encounter; I10 Essential (primary) hypertension; E11.40 Type 2 diabetes mellitus with diabetic neuropathy, unspecified; I25.2 Old myocardial infarction; Z87.891 Personal history of nicotine dependence; Z88.8 Allergy status to other drugs, medicaments and biological substances; Z79.4 Long term (current) use of insulin; Z79.82 Long term (current) use of aspirin; Z79.899 Other long term (current) drug therapy
CPT/HCPCS: 96365; 96375; J0696; J0878

== ENCOUNTER 2021-12-23 00:13 | Day surgery (SDC) | payer OTHER ==
[2021-12-23] MEDS ORDERED: CUBICIN500 MG IV (14:17)
[2021-12-23] MEDS ORDERED: CEFTRIAXON1 GM/50 M1 IV (14:18)
== END 2021-12-23 14:40 | disposition home or self-care (01) ==
LOC: ATC 00:13
DX: A41.9 Sepsis, unspecified organism (principal); L03.116 Cellulitis of left lower limb; I25.2 Old myocardial infarction; I10 Essential (primary) hypertension; E11.65 Type 2 diabetes mellitus with hyperglycemia; E11.40 Type 2 diabetes mellitus with diabetic neuropathy, unspecified; Z88.8 Allergy status to other drugs, medicaments and biological substances; Z79.4 Long term (current) use of insulin; Z95.5 Presence of coronary angioplasty implant and graft; Z79.891 Long term (current) use of opiate analgesic
CPT/HCPCS: J0696; J0878

== ENCOUNTER 2021-12-24 01:47 | Day surgery (SDC) | payer OTHER ==
[~2021-12-24 01:47] MED LIST changes: +CEFTRIAXON1 GM/50 M1 IV; +CUBICIN500 MG IV
== END 2021-12-24 11:55 | disposition home or self-care (01) ==
LOC: ATC 01:47
DX: A41.9 Sepsis, unspecified organism (principal); L03.90 Cellulitis, unspecified
CPT/HCPCS: J0696; J0878

== ENCOUNTER 2021-12-25 00:43 | Day surgery (SDC) | payer OTHER | END 2021-12-25 11:54 | disposition home or self-care (01) | LOC: ATC 00:43 | DX: A41.9 Sepsis, unspecified organism (principal); L03.116 Cellulitis of left lower limb; B95.62 Methicillin resistant Staphylococcus aureus infection as the cause of diseases classified elsewhere; E11.9 Type 2 diabetes mellitus without complications; I10 Essential (primary) hypertension; Z87.891 Personal history of nicotine dependence; Z95.5 Presence of coronary angioplasty implant and graft; Z79.4 Long term (current) use of insulin; Z88.8 Allergy status to other drugs, medicaments and biological substances | CPT/HCPCS: J0696; J0878 ==

== ENCOUNTER 2021-12-26 06:01 | Day surgery (SDC) | payer OTHER | END 2021-12-26 14:41 | disposition home or self-care (01) | LOC: ATC 06:01 | DX: A41.9 Sepsis, unspecified organism (principal); L03.116 Cellulitis of left lower limb; I25.2 Old myocardial infarction; I10 Essential (primary) hypertension; E11.40 Type 2 diabetes mellitus with diabetic neuropathy, unspecified; Z95.5 Presence of coronary angioplasty implant and graft; Z87.891 Personal history of nicotine dependence; Z79.4 Long term (current) use of insulin; Z88.8 Allergy status to other drugs, medicaments and biological substances | CPT/HCPCS: J0696; J0878 ==

== ENCOUNTER 2021-12-27 05:31 | Day surgery (SDC) | payer OTHER | END 2021-12-27 14:45 | disposition home or self-care (01) | LOC: ATC 05:31 | DX: A41.9 Sepsis, unspecified organism (principal); L03.116 Cellulitis of left lower limb; S91.332A Puncture wound without foreign body, left foot, initial encounter; W26.9XXA Contact with unspecified sharp object(s), initial encounter; I10 Essential (primary) hypertension; E11.40 Type 2 diabetes mellitus with diabetic neuropathy, unspecified; E11.65 Type 2 diabetes mellitus with hyperglycemia; Z79.4 Long term (current) use of insulin; Z88.8 Allergy status to other drugs, medicaments and biological substances; Z87.891 Personal history of nicotine dependence | CPT/HCPCS: J0696; J0878 ==

== ENCOUNTER → 2023-10-09 | Outpatient (CLI) | payer OTHER ==
[2023-10-09 13:11] LABS: BASOPHILS ABSOLUTE AUTO 0.08 K/mm3 (0.00-0.23); BASOPHILS PERCENT AUTO 1 % (0-2); EOSINOPHILS ABSOLUTE AUTO 0.25 K/mm3 (0.00-0.68); EOSINOPHILS PERCENT AUTO 4 % (0-6); Hematocrit 40.9 % (37.0-53.0); Hemoglobin 15.1 g/dL (13.5-17.5); IMMATURE GRAN ABSOLUTE AUTO 0.02 K/mm3 (0.00-0.10); IMMATURE GRAN PERCENT AUTO 0 % (0-1); LYMPHOCYTES ABSOLUTE AUTO 1.25 K/mm3 (0.84-5.20); LYMPHOCYTES PERCENT AUTO 19 % (21-46); MONOCYTES ABSOLUTE AUTO 0.45 K/mm3 (0.16-1.47); MONOCYTES PERCENT AUTO 7 % (4-13); Mean Corpuscular HGB 31.3 pg (26.0-34.0); Mean Corpuscular HGB Conc 36.9 g/dL (31.5-36.5); Mean Corpuscular Volume 85 fL (80-100); Mean Platelet Volume 11.3 fL (9.1-12.4); NEUTROPHILS ABSOLUTE AUTO 4.46 K/mm3 (1.96-9.15); NEUTROPHILS PERCENT AUTO 69 % (41-73); Platelet Count 279 K/mm3 (150-400); RDW Coefficient Variation 13.2 % (11.7-14.2); RDW Standard Deviation 40.6 fL (35.1-46.3); Red Blood Cell Count 4.82 M/mm3 (4.30-5.90); White Blood Cell Count 6.51 K/mm3 (4.00-11.30)
[2023-10-09 13:42] LABS: Alanine Aminotransfer (ALT/SGP 52 U/L (12-78); Albumin, Blood 3.3 g/dL (3.4-5.0); Albumin/Globulin Ratio 0.8 (0.8-1.8); Alk Phos 142 U/L (50-136); Anion Gap 6 mmol/L (6-16); Aspartate Aminotrans (AST/SGOT 24 U/L (12-37); Bilirubin, Total 0.5 mg/dL (0.1-1.0); Blood Urea Nitrogen 18 mg/dL (8-24); Bun/Creatinine Ratio 24.8 (12.0-20.0); CHOL/HDL RATIO 5.5; CO2, Blood 26 mmol/L (21-32); Calcium, Blood 8.7 mg/dL (8.5-10.1); Chloride, Blood 103 mmol/L (98-108); Cholesterol 170 mg/dL (50-200); Creatinine, Blood 0.73 mg/dL (0.60-1.20); Globulin, Blood 4.2 g/dL (2.2-4.0); Glomerular Filtration Rate 113 (60-); Glucose, Blood 336 mg/dL (70-99); HDL Cholesterol 31 mg/dL (>39); LDL/HDL RATIO 2.7; Low Density Lipoprotein Chol 84 mg/dL (0-110); Sodium, Blood 135 mmol/L (136-145); Total Protein, Blood 7.5 g/dL (6.4-8.2); Triglycerides 273 mg/dL (30-160); Very Low Density Lipoprot Chol 54 mg/dL (6-32)
== END | disposition home or self-care (01) ==
LOC: LAB SHORT 08:15 → LAB 08:15
PROVIDERS: Nurse Practitioner Family
DX: E55.9 Vitamin D deficiency, unspecified (principal); E78.5 Hyperlipidemia, unspecified; F41.8 Other specified anxiety disorders; I10 Essential (primary) hypertension
CPT/HCPCS: 80053; 80061; 82306; 84443; 85025